=== PATIENT | female | born 1965 | race African-American/Black ===

== ENCOUNTER 2016-06-27 14:24 | Emergency (ER) | payer OTHER ==
[~2016-06-27] VITALS: Ht 162.6 cm; Wt 58.9 kg
[2016-06-27] MEDS ORDERED: ULTRAM50 MG PO (16:45)
[2016-06-27] MEDS ORDERED: NAPROSYN500 MG PO (16:45)
[2016-06-27] MEDS ORDERED: FLEXERIL5 MG PO (16:45)
[2016-06-27 16:53] VITALS: BP 132/90
== END 2016-06-27 17:18 | disposition home or self-care (01) ==
LOC: EME 14:24
DX: S46.911A Strain of unspecified muscle, fascia and tendon at shoulder and upper arm level, right arm, initial encounter (principal); R51 Headache; V43.53XA Car driver injured in collision with pick-up truck in traffic accident, initial encounter; I10 Essential (primary) hypertension
CPT/HCPCS: 99281; 99283